=== PATIENT | female | born 1990 | race Caucasian/White ===

== ENCOUNTER 2017-06-07 20:54 | Emergency (ER) | payer OTHER ==
[~2017-06-07] VITALS: Ht 175.3 cm; Wt 99.9 kg
[~2017-06-07 20:54] MED LIST: CEFPODOXIME PR100 MG PO; HYDROCODON-ACE1 EAC8 PO; IBUPROFEN800 MG PO; KEFLEX500 MG PO; MUCINEX FAST-M1 EACH PO; NAPROXEN500 MG PO; NORCO 5-325 TA1 EACH PO; NORCO 7.5-3251 EACH PO; PERCOCET 5-3251 EACH PO; PRENATAL CAPLE1 EACH PO; PROMETHAZINE HC25 M1 PO; ROBAXIN-750750 MG PO; SEPTRA DS TABL1 EACH PO; TRAMADOL HCL50 MG PO
--- OUTSIDE RECORDS SUMMARY | 2017-06-07 20:57 | XMS ---
Demographics + + + | Address | [address] | | | [place] [address] | + + + | Preferred Language | Unknown | + + + | Marital Status | Unknown | + + + | Cheondoism Affiliation | Unknown | + + + | Race | Unknown | + + + | Ethnic Group | Unknown | + + + Author + + + | Author | [facility] | + + + | Organization | [facility] | + + + | Address | [address] | | | [place] [address] | + + + | Phone | | + + + Care Team Providers + + + + | Care Air Conditioning Service Technician Name | Role | Phone | + + + + Unavailable | Unavailable | + + + + PROBLEMS +---------+ + + +--------+ + + | Type | Condition | ICD9-CM | OEG11-DI | Onset | Condition | SNOMED | | | | Code | Code | Dates | Status | Code | +---------+ + + +--------+ + + | Problem | Pharyngiti | | J02.9 | | Active | [id number] | | | s | | | | | | +---------+ + + +--------+ + + | Problem | Acute | | J20.9 | | Active | [id number] | | | bronchitis | | | | | | +---------+ + + +--------+ + + | Problem | CELLULITIS | 682.6 | | | Active | [id number] | | | OF LEG | | | | | | +---------+ + + +--------+ + + | Problem | STREP SORE | 034.0 | | | Active | 94976911 | | | THROAT | | | | | | +---------+ + + +--------+ + + | Problem | Laryngitis | J04.0 | | | Active | [id number] | +---------+ + + +--------+ + + | Problem | Eustachian | H69.80 | | | Active | [id number] | | | tube | | | | | | | | dysfunctio | | | | | | | | n | | | | | | +---------+ + + +--------+ + + ALLERGIES + + + + +---------+ | Substance | Reaction | Event Type | Date | Status | + + + + +---------+ | N.K.D.A. | Unknown | Non Drug | Apr, | Unknown | | | | Allergy | | | + + + + +---------+ SOCIAL HISTORY No smoking Hx information available PLAN OF CARE + +---------+ | Activity | Details | + +---------+ +---+ | | +---+ + + + | Follow Up | prn Reason:null | + + + | Future/Pending Procedure | EKG | + + + VITAL SIGNS + + + + | Height | 69 in | 2017-05-01 | + + + + | Weight | 217.8 lbs | 2017-05-01 | + + + + | BMI | 32.16 kg/m2 | 2017-05-01 | + + + + | Temperature | 97.2 degrees Fahrenheit | 2017-05-01 | + + + + | Heart Rate | 69 /min | 2017-05-01 | + + + + | Blood pressure systolic | 121 mm Hg | 2017-05-01 | + + + + | Blood pressure diastolic | 78 mm Hg | 2017-05-01 | + + + + MEDICATIONS + + + + +--------+ + +--------+ | Medicati | Instruct | Dosage | Frequenc | Start | End Date | Duration | Status | | on | ions | | y | Date | | | | + + + + +--------+ + +--------+ | Robituss | Orally | 5-10 ml | | | 31 Aug, | 10 | Active | | in AC | qhs | as | | | 2017 | day(s) | | | 100 | | needed | | | | | | | MG/5ML | | | | | | | | + + + + +--------+ + +--------+ RESULTS + +--------+------+ + | Name | Result | Date | Reference Range | + +--------+------+ + | Strep Gp A Rapid | | | | | (IH) | | | | + +--------+------+ + PROCEDURES + + + + + | Procedure | Date Ordered | Related Diagnosis | Body Site | + + + + + | STREP A ASSAY | May 01, 2017 | | | | W/OPTIC | | | | + + + + + | Est Level IV | May 01, 2017 | | | | Extended | | | | + + + + + IMMUNIZATIONS No Known Immunizations"
--- OUTSIDE RECORDS SUMMARY | 2017-06-07 20:57 | XMS ---
Demographics + + + | Address | [address] | | | [place] [address] | + + + | Preferred Language | Unknown | + + + | Marital Status | Unknown | + + + | Evangelical Affiliation | Unknown | + + + | Race | Unknown | + + + | Ethnic Group | Unknown | + + + Author + + + | Author | [facility] | + + + | Organization | [facility] | + + + | Address | [address] | | | [place] [address] | + + + | Phone | | + + + Care Team Providers + + + + | Care Compensator Worker Name | Role | Phone | + + + + Unavailable | Unavailable | + + + + PROBLEMS +---------+ + + +--------+ + + | Type | Condition | ICD9-CM | CVS06-PO | Onset | Condition | SNOMED | | | | Code | Code | Dates | Status | Code | +---------+ + + +--------+ + + | Problem | CELLULITIS | 682.6 | | | Active | [id number] | | | OF LEG | | | | | | +---------+ + + +--------+ + + | Problem | STREP SORE | 034.0 | | | Active | [id number] | | | THROAT | | | | | | +---------+ + + +--------+ + + ALLERGIES + + + + +---------+ | Substance | Reaction | Event Type | Date | Status | + + + + +---------+ | NJuan LuisKAngelA. | Unknown | Non Drug | Feb, | Unknown | | | | Allergy | | | + + + + +---------+ SOCIAL HISTORY No smoking Hx information available PLAN OF CARE + +---------+ | Activity | Details | + +---------+ +---+ | | +---+ + + + | Follow Up | prn, establish care with a primary | | | provider Reason:null | + + + VITAL SIGNS + + + + | Height | 69 in | 2017-03-02 | + + + + | Weight | 222.8 lbs | 2017-03-02 | + + + + | BMI | 32.90 kg/m2 | 2017-03-02 | + + + + | Temperature | 97.9 degrees Fahrenheit | 2017-03-02 | + + + + | Blood pressure systolic | 132 mm Hg | 2017-03-02 | + + + + | Blood pressure diastolic | 86 mm Hg | 2017-03-02 | + + + + MEDICATIONS + + + + + + + +--------+ | Medicati | Instruct | Dosage | Frequenc | Start | End Date | Duration | Status | | on | ions | | y | Date | | | | + + + + + + + +--------+ | Penicill | orally | 1 tablet | 12h | 22 Jake, | 2 Jorge A, | 10 days | Active | | in V | Twice a | | | 2016 | 2016 | | | | Potassiu | day | | | | | | | | m 500 MG | | | | | | | | + + + + + + + +--------+ RESULTS + +--------+ + + | Name | Result | Date | Reference Range | + +--------+ + + | Strep Gp A Rapid | | 2017-03-02 | | | (IH) | | | | + +--------+ + + PROCEDURES + + + + + | Procedure | Date Ordered | Related Diagnosis | Body Site | + + + + + | STREP A ASSAY | March 02, 2017 | | | | W/OPTIC | | | | + + + + + | Est Level III | March 02, 2017 | | | | Intermediate | | | | + + + + + IMMUNIZATIONS No Known Immunizations"
[2017-06-07] MEDS ORDERED: IMODIUM A-D2 M2 PO (22:22)
[2017-06-07] MEDS ORDERED: ZOFRAN ODT4 MG PO (22:22)
== END 2017-06-07 22:31 | disposition home or self-care (01) ==
LOC: ED 20:54
DX: A08.4 Viral intestinal infection, unspecified (principal); F17.200 Nicotine dependence, unspecified, uncomplicated
CPT/HCPCS: 80053; 84703; 85025; 96361; 96374; 96375; 99283; J1885; J2405; J7030

== ENCOUNTER 2019-07-02 17:37 | Emergency (ER) | payer OTHER ==
[~2019-07-02] VITALS: Ht 175.3 cm; Wt 74.8 kg
--- OUTSIDE RECORDS SUMMARY | ~2019-07-02 | XMS | Clinical Summary ---
Demographics + + + | Address | [address] | | | [place] [address] | + + + | Home Phone | | + + + | Preferred Language | Unknown | + + + | Marital Status | Single | + + + | Nondenominational Affiliation | Unknown | + + + | Race | Unknown | + + + | Ethnic Group | Unknown | + + + Author + + + | Author | [facility] | | | and [place] | + + + | Organization | [facility] | | | and [place] | + + + | Address | Unknown | + + + | Phone | Unavailable | + + + Support + + +---------+ + | Name | Relationship | Address | Phone | + + +---------+ + | Radha Beavers | ECON | Unknown | | + + +---------+ + Care Team Providers + +------+ + | Care Manager Oracle Retail Name | Role | Phone | + +------+ + | No, Physician | PCP | Unavailable | + +------+ + Allergies No Known Allergies Medications No known medications Active Problems No known active problems Social History + + + +--------+------+ | Tobacco Use | Types | Packs/Day | Years | Date | | | | | Used | | + + + +--------+------+ | Current Every Day | Cigarettes | | | | | Smoker | | | | | + + + +--------+------+ + + + | Sex Assigned at | Date Recorded | | | | + + + | Not on file | | + + + + + + + | Job Start Date | Occupation | Industry | + + + + | Not on file | Not on file | Not on file | + + + + + + + + | Travel History | Travel Start | Travel End | + + + + + + | No recent travel history available. | + + Last Filed Vital Signs + + + + | Vital Sign | Reading | Time Taken | + + + + | Blood Pressure | 120/60 | 04/25/20161337 PDT | + + + + | Pulse | 103 | 04/25/20161337 PDT | + + + + | Temperature | 37.1 C (98.7 F) | 04/25/20161337 PDT | + + + + | Respiratory Rate | 15 | 04/25/20161337 PDT | + + + + | Oxygen Saturation | 98% | 04/25/20161337 PDT | + + + + | Inhaled Oxygen | - | - | | Concentration | | | + + + + | Weight | 104.1 kg (229 lb 8 | 04/25/20161337 PDT | | | oz) | | + + + + | Height | 175.3 cm (5' 9") | 04/25/20161337 PDT | + + + + | Body Mass Index | 33.89 | 04/25/20161337 PDT | + + + + Plan of Treatment + + + + + | Health Maintenance | Due Date | Last Done | Comments | + + + + + | Vaccine: | | | | | Dtap/Tdap/Td (1 - | 8 | | | | Tdap) | | | | + + + + + | Cervical Cancer | | | | | Screening (Pap) | 9 | | | + + + + + | Vaccine: Influenza | | | | | (#1) | 9 | | | + + + + + Results Not on filefrom Last 3 Months Insurance + +--------+ +--------+ +---------+--------+ | Payer | Benefi | Subscriber | Effect | Phone | Address | Type | | | t Plan | ID | heidy | | | | | | / | | Dates | | | | | | Group | | | | | | + +--------+ +--------+ +---------+--------+ | [employer] | [employer] | [id number] | | [phone] | | Medica | | MEDICAID HMO | HEALTH | | [id number] | 1 | | id | | | MDCD | | esent | | | | | | HMO OR | | | | | | + +--------+ +--------+ +---------+--------+ + +--------+ +--------+ + + | Guarantor Name | Accoun | Relation to | Date | Phone | Billing Address | | | t Type | Patient | of | | | | | | | | | | + +--------+ +--------+ + + | Ruth Ann Shah | Person | Self [birth year] [address] [facility] [facility] | | | o[place] | | 1989 | [phone] | [place] [address] | | | [place] | | | 0 (Home) | | + +--------+ +--------+ + + Advance Directives Patient has advance care planning documents on file. For more information, please contact:[facility] [place] [address]
--- OUTSIDE RECORDS SUMMARY | ~2019-07-02 | XMS | Clinical Summary ---
Demographics + + + | Address | [address] | | | [place] [address] | + + + | Home Phone | | + + + | Preferred Language | Unknown | + + + | Marital Status | Single | + + + | Uatsdin Affiliation | Unknown | + + + | Race | Unknown | + + + | Ethnic Group | Unknown | + + + Author + + + | Author | [facility] | | | and [place] | + + + | Organization | [facility] | | | and [place] | [...] Team Providers + +------+ + | Care Case Liner Name | Role | Phone | + [...] | [employer] | MOD[employer] | [id number] | | [phone] | | Medica | | MEDICAID HMO [...] | Self | [birth year] [address] [facility] | | | o[place] | | 1989 | [phone] | [place] [address] | | | [place] | | | 0 (Home) | | + +--------+ +--------+ + + Advance Directives Patient has advance care planning documents on file. For more information, please contact:[facility] [place] [address]
[~2019-07-02 17:37] MED LIST changes: +IMODIUM A-D2 M2 PO; +ZOFRAN ODT4 MG PO
--- OUTSIDE RECORDS SUMMARY | 2019-07-02 17:40 | XMS ---
PreManage Notification: YNES FUENTES Security Supervising Broker Events No recent Security Events currently on file CRITERIA MET - Group Notification CARE PROVIDERS There are no care providers on record at this time. Dionna has no Care Guidelines for this patient. Bart VISIT COUNT (12 MO.) 1 ROMINA Borges TOTAL 1 NOTE: Visits indicate total known visits. ED/UCC VISIT TRACKING (12 MO.) 07/02/2019 17:38 ROMINA Suazo [place] TYPE: Emergency COMPLAINT: - TOE INJ INPATIENT VISIT TRACKING (12 MO.) No inpatient visits to display in this time frame [email or web address]
[2019-07-02] MEDS ORDERED: NORCO 5-325 TA1 EACH PO (19:04)
== END 2019-07-02 19:27 | disposition home or self-care (01) ==
LOC: ED 17:37
PROC: 0QSRXZZ Reposition Left Toe Phalanx, External Approach (ICD-10-PCS; principal; 2019-07-02)
DX: S92.412A Displaced fracture of proximal phalanx of left great toe, initial encounter for closed fracture (principal); F17.200 Nicotine dependence, unspecified, uncomplicated; W22.8XXA Striking against or struck by other objects, initial encounter
CPT/HCPCS: 28495; 73630; 99283-25

== ENCOUNTER 2021-07-13 10:52 | Emergency (ER) | payer OTHER ==
[~2021-07-13] VITALS: Ht 175.3 cm; Wt 88.5 kg
[~2021-07-13 10:52] MED LIST changes: +IBU-200200 MG PO
--- OUTSIDE RECORDS SUMMARY | 2021-07-13 10:54 | XMS ---
PreManage Notification: YNES FUENTES Security Help Desk Agent Events No recent Security Events currently on file CRITERIA MET - PDMP - Group Notification CARE PROVIDERS There are no care providers on record at this time. Dionna has no Care Guidelines for this patient. Bart VISIT COUNT (12 MO.) 1 ROMINA Borges TOTAL 1 NOTE: Visits indicate total known visits. ED/UCC VISIT TRACKING (12 MO.) 07/13/2021 10:53 ROMINA Suazo OR TYPE: Emergency COMPLAINT: - R SIDE JAW PAIN/SWELLING INPATIENT VISIT TRACKING (12 MO.) No inpatient visits to display in this time frame [email or web address]
[2021-07-13] MEDS ORDERED: HYDROXYZINE HCL50 MG PO (11:06)
[2021-07-13] MEDS ORDERED: FLUOXETINE HCL20 M1 PO (11:06)
[2021-07-13] MEDS ORDERED: PENICILLIN V P500 MG PO (11:18)
[2021-07-13] MEDS ORDERED: HYDROCODON-ACE1 EA10 PO (11:18)
== END 2021-07-13 11:27 | disposition home or self-care (01) ==
LOC: ED 10:52
DX: K08.89 Other specified disorders of teeth and supporting structures (principal); F17.200 Nicotine dependence, unspecified, uncomplicated; Z79.899 Other long term (current) drug therapy
CPT/HCPCS: 99282

== ENCOUNTER 2022-04-29 05:58 | Inpatient (IN) | payer OTHER ==
[~2022-04-29] VITALS: Ht 175.3 cm; Wt 104.1 kg
[~2022-04-29 05:58] MED LIST changes: +FLUOXETINE HCL20 M1 PO; +HYDROCODON-ACE1 EA10 PO; +HYDROXYZINE HCL50 MG PO; +PENICILLIN V P500 MG PO
[2022-04-29] MEDS ORDERED: DISKETS40 MG PO (06:12)
--- NOTE | 2022-04-29 09:38 | NUR ---
PATIENT ARRIVED TO ROOM 130. PATIENT ALERT AND ORIENTED AND ABLE TO STAND AND TRANSFER HERSELF. PATIENT KIMI FEELS UNWELL. PATIENT DOES HAVE A FEVER 102.4 TEMPORAL AND 101.2 AXILLARY. PATIENT FLUSH AROUND HER CHEST AND NECK. NO OTHER REDDNESS NOTED. PATIENT STATES SHE FEELS WARM, BUT COLD AT THE SAME TIME. WILL CONTINUE TO CLOSELY MONITOR.
--- NOTE | 2022-04-29 10:30 | NUR ---
MD RENTERIA IN TO SEE PATIENT. PATIENT IS GROGGY AND NOT FEELING WELL. REVIEWED PLAN OF CARE WITH PATIENT. WILL CONTINUE TO CLOSELY MONITOR.
--- NOTE | 2022-04-29 12:30 | NUR ---
PATIENTS ASSESSMENT COMPELTED. PATIENT RESTING IN BED AND IS FEELING MUCH BETTER THAN EARLIER. PATIENTS FEVER IS DOWN TO 99.6 ORAL AND 99.0 AXILLARY. PATIENTS NECK/CHEST FLUSHNESS HAS ALSO IMPROVED. NEW IV STARTED. PATIENT TOELRATED WELL. PATIENT STATES SHE IS HUNGRY AND NO NAUSEA. WILL GET PATIENTS FOOD. NO OTHER NEEDS AT THIS TIME. WILL CONTINUE TO CLOSELY MONITOR.
--- NOTE | 2022-04-29 14:30 | NUR ---
PATIENT RESTING IN BED WITH FLUIDS GOING AT THIS TIME. PATIENT DENIES ANY NEEDS. PATIENT CONTINUES TO FEEL BETTER THIS AFTERNOON. PAIN IS MUCH BETTER CONTROLLED AND PATIENTS HEADACHE HAS CONTINUED TO IMPROVE.
--- NOTE | 2022-04-29 15:22 | NUR ---
MED REC COMPLETE
--- NOTE | 2022-04-29 15:30 | EKG ---
[facility] [address] [facility] [place] [address] Signed Normal sinus rhythm Incomplete right bundle branch block Borderline ECG No previous ECGs available Confirmed by AFSANEH RENTERIA MD ([id number]) on 04/29/2022 3:30:02 PM Electronically Signed By: AFSANEH RENTERIA MD 04/29/22 1530 PATIENT NAME: YNES FUENTES Electrocardiogram DATE OF : 88 PHYSICIAN: AFSANEH RENTERIA MD REPORT #: [id number] REPORT IS CONFIDENTIAL AND NOT TO BE RELEASED WITHOUT AUTHORIZATION
--- NOTE | 2022-04-29 16:45 | NUR ---
PATIENT ASSESSMENT COMPLETED AND REMIANS UNCHANGED. PATIENT EATING DINNER AT THIS TIME. WILL CONTINUE TO CLOSELY MONITOR.
--- NOTE | 2022-04-29 17:48 | NUR ---
UPDATED MD RENTERIA THAT PATIENTS TEMP IS 100.4 ORAL. NO NEW ORDERS. WILL GIVE PRN IBUPROFEN. UPDATED THAT PATIENT HAS CONTINUED TO DO WELL THIS AFTERNOON. WILL DO LABS AT 1800. WILL CONTINUE TO CLOSELY MONITOR.
--- NOTE | 2022-04-29 19:00 | NUR ---
this rn into pt room with precaution attire on to check iv pump alarming. iv wnl, distal occlusion, pt said she has bent her. pt said she felt her temp was going up.
--- NOTE | 2022-04-29 19:00 | NUR ---
MD RENTERIA CALLED. UPDATED ON PATIENTS CONDITION. SEE NEW ORDERS. WILL UPDATE CARE TRANSITIONS MANAGER RN OF PLAN OF CARE.
--- NOTE | 2022-04-29 19:30 | NUR ---
pt temp 100.0 F. at this time, oral contrast prepared. ct planned for [address] staff[address]
--- NOTE | 2022-04-29 20:00 | NUR ---
POISON CONTROL AYESHA CALLED TO INQUIRE TO PT LAST LABS AND CURRENT MEDICATION AND UPDATE ON CARE PLAN.
--- NOTE | 2022-04-29 20:15 | NUR ---
PT UP TO BATHROOM, WITH STANDBY ASSIST, STEADY GAIT, VOIDED 950ML, BED LINENS CHANGED. PT HAS NO OTHER REQUESTS AT THIS TIME.
--- NOTE | 2022-04-29 20:30 | NUR ---
PT RESTING IN BED EYES CLOSED, ALERT TO RN AT BEDSIDE HAS FIRST DOSE OF ORAL CONTRAST COMPLETE, SECOND DOSE PROVIDED AT THIS TIME,
--- NOTE | 2022-04-29 21:55 | NUR ---
PT RETURNED TO ROOM AT THIS TIME AFTER CT SCAN. SHE REPORTS SHE WOULD LIKE A LUNCH BOX WHEN OFFERED. ONCE BACK IN ROOM PT REQUESTED TO USE BATHROOM, PT AMBULATED TO BATHROOM STEADY GAIT, VOIDED 650ML CLEAR YELLOW URINE. PT BACK TO BED, NO OTHER REQUESTS OTHER THAN FOOD. SHE RPORTS PAIN IS TOLERABLE AT THIS TIME 3/10 CRAMPS, NO REPORT OF HEADACHE.
--- NOTE | 2022-04-29 22:44 | NUR ---
PT HAS CONSUMED 50% OF SANDWICH BOX AT THIS TIME, SHE IS NOW RESTING IN BED EYES CLOSED RR REGULAR AT 22 BPM, NO DISTRESS NOTED.
--- NOTE | 2022-04-29 23:23 | NUR ---
PT CALLED NURSES STATION TO REPORT HER IV SITE WAS HURTING, COBAN REMOVED, PT REPORTS FEELS BETTER, IV SITE WNL, BLOOD RETURN BRISK ON ASSESSMENT. PT HAS NO OTHER CONCERNS.
--- NOTE | 2022-04-30 00:46 | NUR ---
PT UP TO BATHROOM STANDBY ASSIST, STEADY GAIT, PT VOIDED 650ML CLEAR YELLOW URINE. SHE HAD NO OTHER CONCERNS, SHE REQUESTED A WARM BLANKET, THIS IS PROVIDED AT THIS TIME.
--- NOTE | 2022-04-30 03:31 | NUR ---
PT RESTING IN BED EYES CLOSED RR REGULAR AT 23 BPM, NO DISTRESS NOTED, PT IS ON MONITOR V/S STABLE. NO DISTRESS NOTED, IVF/MEDS INFUSING ORDERED.
--- NOTE | 2022-04-30 06:00 | NUR ---
POISON CONTROL AYESHA CALLED FOR AM LABS, LABS PROVIDED AND NOTED TO BE IMPROVING, AYESHA SAID "ONCE THIS CURRENT INFUSION OF MEDICINE IS COMPLETE, THEN IT CAN STOP" IN REFERENCE TO THE ACETADOTE IV INFUSION.
--- NOTE | 2022-04-30 06:31 | NUR ---
PT UP TO BATHROOM, STEADY GAIT, STANDBY ASSIST WITH IV POLE AND LEAD CORDS. PT VOIDED 950ML URINE WITH RED TINT SHE IS ON HER MENSTUAL CYCLE. PT REPORTS PAIN 4/10 GENERALIZED WITH CRAMPS, SHE IS NOTED TO HAVE PRODUCTIVE COUGH THIS AM WHILE AMBULATING. PT ON ROOM AIR, NO SHORTNESS OF BREATH NOTED NO INCREASE OF WORK TO BREATH. PT CONTINUES TO HAVE TACHYPNEA AVERAGE 20-30 BREATHS PER MINUTE, THIS IS NOT NEW AND WAS NOTIFIED BY DAYSHIFT YESTURDAY. NO NEW CONCERNS THIS SHIFT.
--- NOTE | 2022-04-30 07:30 | NUR ---
PATIENT SHIFT REPORT RECIEVED FROM DROP CLIPPER RN. PATIENT RESTING IN BED AT THIS TIME. CALL LIGHT IN REACH AND PATIENT CALLS APPROPRIATELY. WILL CONTINUE TO CLOSELY MONITOR.
--- NOTE | 2022-04-30 08:30 | NUR ---
PATIENT ASSESSMENT COMPLETED. PATIENT RESTING IN BED. PATIENT BREATH SOUNDS CLEAR. RR-26. BOWEL TONES ACTIVE. PATIENT MEDICATIONS GIVEN. PATIENTS IVS RESECURED. VITALS DONE. PATIENT NOW SITTING UP IN THE ROOM VISITING ON THE PHONE AND EATING BREAKFAST. WILL CONTINUE TO CLOSELY MONITOR.
--- NOTE | 2022-04-30 10:45 | NUR ---
SPOKE WITH MD RENTERIA TO UPDATE. PATIENT IS ASKING ABOUT GOING HOME. PATIENTS SIGNIFICANT OTHER ALSO HAS CALLED AND ASKED MULTIPLE TIMES IF PATIENT CAN GO HOME. PER MD PATIENT CAN DISCHARGE. WILL HAVE PATIENT FOLLOW-UP WITH PRIMARY CARE PROVIDER REGARDING PENDING LABS.
--- NOTE | 2022-04-30 11:49 | NUR ---
HELPED PT GET READY FOR D/C. REMOVED IV ON L HAND, VITALS DOCUMENTED, LEADS OFF. PT DRESSES INDEPENDENTLY AFTER FIMISHING HER LUNCH. RN WILL COME IN AND GIVE D/C INSTRUCTIONS.
--- NOTE | 2022-04-30 12:05 | NUR ---
PATIENT DISCHARGE INSTRUCTIONS GIVEN TO PATIENT AND REVIEWED. PATIENT EDUCATED TO ISOLATE AT HOME FOR REMIANING 5 DAYS OF ISOLATION FOR COVID POSITIVE. PATIENTS BELOGIGNS SENT WITH PATIENT. IVS REMOVED BY ARIC KULKARNI. PATIENT WILL WHEEL PATIENT TO THE BACK DOOR WHERE HER BOYFRIEND IS WAITING.
--- NOTE | 2022-04-30 12:10 | NUR ---
PATIENT DISCHARGED WITH NO FURTHER ISSUES.
== END 2022-04-30 12:05 | disposition home or self-care (01) | DRG 917 ==
LOC: ED 05:58 → CCU 07:55 → ED 07:55 → CCU 04-30 12:05
PROVIDERS: ADMIT Internal Medicine; ATTEND Internal Medicine
PROC: 8E0ZXY6 Isolation (ICD-10-PCS; principal; 2022-04-29)
DX: T43.621A Poisoning by amphetamines, accidental (unintentional), initial encounter (principal); U07.1 COVID-19; B17.9 Acute viral hepatitis, unspecified; E87.6 Hypokalemia; E86.0 Dehydration; F17.210 Nicotine dependence, cigarettes, uncomplicated; G43.909 Migraine, unspecified, not intractable, without status migrainosus; T39.1X1A Poisoning by 4-Aminophenol derivatives, accidental (unintentional), initial encounter
CPT/HCPCS: 36415; 71045; 74177; 76705; 80053; 81001; 83540; 83550; 83690; 83735; 84703; 85025; 85610; 86705; 86709; 86803; 87340; 93005; 93010; 96361; 96374; 96375; 99284-25; A9270; C9113; C9803; G0480; J0132; J1200; J2543; J2765; J3475; J3480; J7030; J7060; J7070; J7121; Q9967; U0003

== ENCOUNTER 2022-08-12 21:51 | Emergency (ER) | payer OTHER ==
[~2022-08-12] VITALS: Ht 175.3 cm; Wt 105.0 kg
[~2022-08-12 21:51] MED LIST changes: +DISKETS40 MG PO
[2022-08-12] MEDS ORDERED: CEPHALEXIN500 M1 PO (23:27)
== END 2022-08-12 23:53 | disposition home or self-care (01) ==
LOC: ED 21:51
DX: J10.1 Influenza due to other identified influenza virus with other respiratory manifestations (principal); N39.0 Urinary tract infection, site not specified; F17.200 Nicotine dependence, unspecified, uncomplicated; Z20.822 Contact with and (suspected) exposure to COVID-19
CPT/HCPCS: 81001; 87502; 99284; A9270; C9803; U0003

== ENCOUNTER 2024-07-07 19:18 | Emergency (ER) | payer OTHER ==
[~2024-07-07] VITALS: Ht 175.3 cm; Wt 95.0 kg
[~2024-07-07 19:18] MED LIST changes: +CEPHALEXIN500 M1 PO
[2024-07-07 20:45] VITALS: BP 125/68
== END 2024-07-07 20:46 | disposition home or self-care (01) ==
LOC: ED 19:18
DX: S63.501A Unspecified sprain of right wrist, initial encounter (principal); F17.200 Nicotine dependence, unspecified, uncomplicated; Z79.899 Other long term (current) drug therapy; V18.0XXA Pedal cycle driver injured in noncollision transport accident in nontraffic accident, initial encounter; Y93.55 Activity, bike riding
CPT/HCPCS: 73110; 99283